=== PATIENT | female | born 1960 | race Caucasian/White ===

== ENCOUNTER → 2020-08-08 | Outpatient (CLI) | payer MEDICARE, OTHER ==
[~2020-08-08] MED LIST: BUDESONIDE0.25 MG/2 NEB; CEPHALEXIN500 MG PO; FLUOXETINE HCL40 MG PO; GABAPENTIN800 MG PO; IPRAT-ALBUT 0.5-3 ML INH; NORCO 10-325 T1 EACH PO; OMEPRAZOLE40 MG PO; PROCHLORPERAZIN10 MG PO; PROTONIX 40 MG40 M1 PO; SEROQUEL TAB 2525 MG PO; SEROQUEL100 MG PO; SODIUM BICARBO650 M1 PO; SPIRIVA RESPIMAT4 GM INH; SUBOXONE 8 MG-1 EACH SL; VENTOLIN HFA8 GM INH; ZESTRIL20 MG PO; ZOVIRAX 200 MG200 MG PO; magic mouthwash PO
[2020-08-08 12:41] LABS: HEMOGLOBIN 13.7 gm/dl (12.3-15.3); RED BLOOD COUNT 4.95 M/UL (4.00-5.10)
== END ==
LOC: OPSV2 10:00
PROVIDERS: Orthopaedic Surgery
DX: Z01.812 Encounter for preprocedural laboratory examination (principal); Z01.810 Encounter for preprocedural cardiovascular examination; S66.212A Strain of extensor muscle, fascia and tendon of left thumb at wrist and hand level, initial encounter
CPT/HCPCS: 36415; 80048; 85025; 93005

== ENCOUNTER 2020-08-12 07:04 | Inpatient (IN) | payer MEDICARE, OTHER ==
[~2020-08-12] VITALS: Ht 160 cm; Wt 63.0 kg
[~2020-08-12 07:04] MED LIST changes: -BUDESONIDE0.25 MG/2 NEB; -PROTONIX 40 MG40 M1 PO; -SEROQUEL TAB 2525 MG PO; -SEROQUEL100 MG PO; -SODIUM BICARBO650 M1 PO; -SPIRIVA RESPIMAT4 GM INH; -ZESTRIL20 MG PO
[2020-08-12] MEDS ORDERED: PROTONIX 40 MG40 M1 PO (12:35)
[2020-08-12] MEDS ORDERED: SEROQUEL100 MG PO (12:37)
[2020-08-12] MEDS ORDERED: SEROQUEL TAB 2525 MG PO (12:37)
[2020-08-13 04:18] LABS: HEMOGLOBIN 10.8 gm/dl (12.3-15.3); RED BLOOD COUNT 4.02 M/UL (4.00-5.10); WHITE BLOOD COUNT 6.6 K/UL (4.5-11.0)
[2020-08-14 04:53] LABS: HEMOGLOBIN 11.2 gm/dl (12.3-15.3); RED BLOOD COUNT 4.16 M/UL (4.00-5.10); WHITE BLOOD COUNT 6.7 K/UL (4.5-11.0)
--- NOTE | 2020-08-14 14:39 | NUR ---
BELLY PACKER REMOVED SURG DRSG. I CLEANED SITE WITH BETADINE AND COVERED WITH NONADHESIVE, 4Z4, KERLEX AND ABRAHAM PER KJ WATSON VERBAL ORDER. SITE WNL. DSG CDI. WCTM.
--- NOTE | 2020-08-14 18:18 | NUR ---
DRSG CHANGED ON IV SITE. IV STILL WORKING WELL WITH NO COMPLICATIONS.
[2020-08-16 06:28] LABS: HEMOGLOBIN 11.9 gm/dl (12.3-15.3); RED BLOOD COUNT 4.32 M/UL (4.00-5.10); WHITE BLOOD COUNT 7.7 K/UL (4.5-11.0)
--- NOTE | 2020-08-16 19:13 | NUR ---
@[address] POWERS REGARDING PT PICC LINE ORDER, GFR 56, HX CKD SG 3 MD ALREADY AWARE AND DR. POWERS HAS SPOKEN WITH DR. WILLETT AND CLEARED PT TO PLACE PICC LINE, OK TO PLACE PICC LINE PER DR. WILLETT AND DR. POWERS
[2020-09-12] MEDS ORDERED: ZESTRIL20 MG PO (12:40)
== END 2020-08-16 20:05 | disposition home health service (06) | DRG 496 ==
LOC: OR 07:04 → M/S 12:48 → OR 14:16 → M/S 08-16 20:05
PROVIDERS: Orthopaedic Surgery; Physician Assistant; Physician Assistant Medical; ADMIT Internal Medicine Infectious Disease
PROC: 0PDJ0ZZ Extraction of Left Radius, Open Approach (ICD-10-PCS; 2020-08-12)
PROC: 3E0V329 Introduction of Other Anti-infective into Bones, Percutaneous Approach (ICD-10-PCS; 2020-08-12)
PROC: 0PPJ04Z Removal of Internal Fixation Device from Left Radius, Open Approach (ICD-10-PCS; principal; 2020-08-12 09:05)
DX: M86.8X4 Other osteomyelitis, hand (principal); J96.11 Chronic respiratory failure with hypoxia; J44.9 Chronic obstructive pulmonary disease, unspecified; N18.30 Chronic kidney disease, stage 3 unspecified; I12.9 Hypertensive chronic kidney disease with stage 1 through stage 4 chronic kidney disease, or unspecified chronic kidney disease; E78.5 Hyperlipidemia, unspecified; F17.210 Nicotine dependence, cigarettes, uncomplicated; Z20.822 Contact with and (suspected) exposure to COVID-19; Z96.698 Presence of other orthopedic joint implants; F11.10 Opioid abuse, uncomplicated; F32.9 Major depressive disorder, single episode, unspecified; G47.00 Insomnia, unspecified; K44.9 Diaphragmatic hernia without obstruction or gangrene; I25.10 Atherosclerotic heart disease of native coronary artery without angina pectoris; K21.9 Gastro-esophageal reflux disease without esophagitis; F41.9 Anxiety disorder, unspecified; Z90.710 Acquired absence of both cervix and uterus; Z88.5 Allergy status to narcotic agent; Z88.2 Allergy status to sulfonamides; Z88.8 Allergy status to other drugs, medicaments and biological substances; Z90.49 Acquired absence of other specified parts of digestive tract; Z98.51 Tubal ligation status; I25.2 Old myocardial infarction
CPT/HCPCS: 36415; 73100; 73110; 76000; 80048; 80202; 82550; 83735; 84156; 85025; 85027; 87070; 87077; 87186; 87205; 94760; C1713; J0690; J0692; J0878; J1100; J1650; J2001; J2250; J2405; J2704; J2795; J3010; J3260; J3370; J7030; J7070; J7120; U0002

== ENCOUNTER 2020-09-03 21:04 | Inpatient (IN) | payer MEDICARE, OTHER ==
[~2020-09-03] VITALS: Ht 160 cm; Wt 62.6 kg
[~2020-09-03 21:04] MED LIST changes: +PROTONIX 40 MG40 M1 PO; +SEROQUEL TAB 2525 MG PO; +SEROQUEL100 MG PO
[2020-09-04 02:27] LABS: HEMOGLOBIN 11.9 gm/dl (12.3-15.3); RED BLOOD COUNT 4.34 M/UL (4.00-5.10); WHITE BLOOD COUNT 6.3 K/UL (4.5-11.0)
[2020-09-04] MEDS ORDERED: SPIRIVA RESPIMAT4 GM INH (13:17)
[2020-09-05 05:26] LABS: HEMOGLOBIN 10.7 gm/dl (12.3-15.3); RED BLOOD COUNT 3.92 M/UL (4.00-5.10); WHITE BLOOD COUNT 4.6 K/UL (4.5-11.0)
[2020-09-06 04:01] LABS: HEMOGLOBIN 11.1 gm/dl (12.3-15.3); RED BLOOD COUNT 3.89 M/UL (4.00-5.10)
[2020-09-06 04:02] LABS: WHITE BLOOD COUNT 7.5 K/UL (4.5-11.0)
[2020-09-07 04:16] LABS: HEMOGLOBIN 10.6 gm/dl (12.3-15.3); RED BLOOD COUNT 3.88 M/UL (4.00-5.10); WHITE BLOOD COUNT 6.4 K/UL (4.5-11.0)
--- NOTE | 2020-09-08 23:51 | NUR ---
REPORT RECIEVED FROM URI MORRISON RN. PT UP AMBULATING IN THE HALLWAY. NO DISTRESS NOTED.
[2020-09-09 06:40] LABS: HEMOGLOBIN 11.9 gm/dl (12.3-15.3); RED BLOOD COUNT 4.34 M/UL (4.00-5.10); WHITE BLOOD COUNT 5.3 K/UL (4.5-11.0)
[2020-09-10 03:51] LABS: HEMOGLOBIN 10.9 gm/dl (12.3-15.3); RED BLOOD COUNT 3.98 M/UL (4.00-5.10); WHITE BLOOD COUNT 4.8 K/UL (4.5-11.0)
[2020-09-10] MEDS ORDERED: SODIUM BICARBO650 M1 PO (11:48)
[2020-09-10] MEDS ORDERED: BUDESONIDE0.25 MG/2 NEB (11:48)
--- NOTE | 2020-09-10 17:42 | NUR ---
SPOKE WITH AURA CARRILLO RE: PICC LINE PLACEMENT. PT LABS DISCUSSED WITH DR. ONEILL. PER CONVERSATION, NEPHROLOGY IS BEING CONSULTED.
[2020-09-11 04:36] LABS: HEMOGLOBIN 10.1 gm/dl (12.3-15.3); RED BLOOD COUNT 3.75 M/UL (4.00-5.10); WHITE BLOOD COUNT 4.7 K/UL (4.5-11.0)
[2020-09-11] MEDS ORDERED: ZESTRIL20 MG PO (19:13)
[2020-09-12] MEDS ORDERED: ZESTRIL20 MG PO (12:40)
== END 2020-09-11 19:27 | disposition home health service (06) | DRG 857 ==
LOC: ER1 21:04 → MED SURG 4 09-04 04:21 → CDU 09-04 04:21 → MED SURG 4 09-04 15:39
PROVIDERS: Emergency Medicine; Internal Medicine; Orthopaedic Surgery; ADMIT Internal Medicine
PROC: 0JBH0ZZ Excision of Left Lower Arm Subcutaneous Tissue and Fascia, Open Approach (ICD-10-PCS; 2020-09-05)
PROC: 0J9H0ZZ Drainage of Left Lower Arm Subcutaneous Tissue and Fascia, Open Approach (ICD-10-PCS; principal; 2020-09-05 13:00)
DX: T81.40XA Infection following a procedure, unspecified, initial encounter (principal); M86.8X3 Other osteomyelitis, forearm; L02.414 Cutaneous abscess of left upper limb; N17.9 Acute kidney failure, unspecified; F11.20 Opioid dependence, uncomplicated; N18.30 Chronic kidney disease, stage 3 unspecified; Z20.822 Contact with and (suspected) exposure to COVID-19; I12.9 Hypertensive chronic kidney disease with stage 1 through stage 4 chronic kidney disease, or unspecified chronic kidney disease; J44.9 Chronic obstructive pulmonary disease, unspecified; E78.5 Hyperlipidemia, unspecified; Z72.0 Tobacco use; Y84.8 Other medical procedures as the cause of abnormal reaction of the patient, or of later complication, without mention of misadventure at the time of the procedure; Z88.6 Allergy status to analgesic agent; Z88.2 Allergy status to sulfonamides; Z88.8 Allergy status to other drugs, medicaments and biological substances; Z84.1 Family history of disorders of kidney and ureter; Z82.49 Family history of ischemic heart disease and other diseases of the circulatory system; Z91.14 Patient's other noncompliance with medication regimen
CPT/HCPCS: 36415; 71045; 73110; 73220; 80048; 80053; 80202; 81001; 83605; 85025; 85652; 86140; 87040; 87070; 87205; 93005; 94640; 94760; 96374; 99285; A9577; C1751; J0692; J0878; J1100; J1885; J2001; J2185; J2250; J2405; J2704; J3010; J3370; J7030; J7070; J7120; U0002